=== PATIENT | male | born 1990 | race Caucasian/White ===

== ENCOUNTER 2018-08-03 19:26 | Emergency (ER) | payer OTHER ==
[~2018-08-03] VITALS: Ht 177.8 cm; Wt 81.7 kg
[~2018-08-03 19:26] MED LIST: AMOXICILLIN 50500 M1 PO; CLARITIN10 MG PO; FLONASE16 GM NS; NOHOMEMEDICATIONS; ULTRAM 50MG TAB50 MG PO
[2018-08-03] MEDS ORDERED: BENTYL 20 MG TA20 M1 PO (19:37)
[2018-08-03] MEDS ORDERED: IBUPROFEN 800800 M1 PO (20:15)
[2018-08-03] MEDS ORDERED: ACETAMINOPHEN-1 EAC1 PO (20:15)
[2018-08-03 20:39] VITALS: BP 118/85
== END 2018-08-03 20:40 | disposition home or self-care (01) ==
LOC: M.ERS 19:26
DX: S62.396A Other fracture of fifth metacarpal bone, right hand, initial encounter for closed fracture (principal); K58.9 Irritable bowel syndrome, unspecified; Z88.5 Allergy status to narcotic agent; W22.8XXA Striking against or struck by other objects, initial encounter; Y93.89 Activity, other specified; Y92.89 Other specified places as the place of occurrence of the external cause; Y99.8 Other external cause status